=== PATIENT | male | born 1990 | race Caucasian/White ===

== ENCOUNTER → 2018-05-11 | Day surgery (SDC) | payer BC ==
[~2018-05-11] MED LIST: CEFTRIAXONE SOD 1 GM/NS 50 ML 50 ML IV ONE; FENTANYL CITRATE/PF 100MCG/2 ML INJ ONE; FLOMAX0.4 MG PO; IOPAMIDOL 610MG/1ML 300 MG/ML VIAL IV ONE; LIDOCAINE HCL 2% LOCAL INJ 5 ML SDV VIAL INJ ONE; MEPERIDINE HCL INJ 25 MG/ML VIAL ONE; MIDAZOLAM HCL 2 MG/2 ML VIAL ONE; ONDANSETRON HCL INJ 2 MG/ML VIAL ONE; PROPOFOL IV EMULSION 10 MG/ML 20 ML VIAL ONE; SEVOFLURANE INHAL SOLN 250 ML PEN BTL ONE; ULTRAM 50MG50 MG PO
[2018-05-11 14:10] VITALS: BP 129/70
--- NOTE | 2018-05-11 15:09 | Operative Report ---
DATE OF PROCEDURE: May 11, 2018 PREOPERATIVE DIAGNOSES 1. Microscopic hematuria. 2. Left ureteral calculus. 3. Left hydronephrosis. POSTOPERATIVE DIAGNOSES 1. Microscopic hematuria. 2. Left ureteral calculus. 3. Left hydronephrosis. PROCEDURES 1. Cystourethroscopy with right ureteral catheterization and right retrograde pyelogram (entirely separate procedure for microscopic hematuria). 2. Cystourethroscopy with extraction of left ureteral calculus (entirely separate procedure for left ureteral calculus). 3. Supervision of fluoroscopy for stone extraction and ureteroscopy portion. 4. Interpretation of retrograde pyelography. ANESTHESIA: General. ESTIMATED BLOOD LOSS: Minimal. COMPLICATIONS: None. INDICATIONS: Mr. Borrego is a very pleasant, 27-year-old male with a history of severe left renal colic. He was found on a CAT scan in an outside ER to have a 4-mm stone. It is present in the preoperative area, and he is still complaining of left-sided flank pain and hematuria. He and I had a long discussion regarding the alternatives, risks and benefits, including doing nothing, cystoscopy, ureteroscopy, shock-wave lithotripsy, percutaneous surgery and open surgery. He voiced an understanding of the options, the alternatives, and the risks and benefits, and he elected to proceed. PROCEDURE IN DETAIL: After informed consent was obtained, the patient was taken to the operative suite and placed supine on the table and underwent general anesthesia. He was placed in the dorsal lithotomy position. He was sterilely prepped and draped in the standard fashion for cystoscopy. A 22.5-[place] cystoscope was inserted per urethra. A normal urethra was noted. Panendoscopy of the bladder revealed no tumors. Bilateral ureters were catheterized. The left stone was manipulated out of the ureter with a 5-[place] open-ended catheter. The stone was grasped and passed off the table as a specimen. Retrograde pyelogram was performed initially revealing some air bubbles on the left side. No hydronephrosis bilaterally. At this time, the stone was removed and the bladder was drained. The patient was awakened from anesthesia and transported to the recovery room in excellent condition. SUPERVISION OF FLUOROSCOPY AND INTERPRETATION OF RETROGRADE PYELOGRAPHY: I was present throughout the entire procedure and supervised the use of fluoroscopy. There was no radiologist present. Attention was turned toward the right and left ureteral orifices, which were catheterized with a 5-[place], open-ended catheter. Bilateral retrograde pyelograms were performed spilling into the bladder showing the stone in the posterior aspect after manipulation. There were some small air bubbles in the left ureter. Otherwise normal retrograde pyelograms. Job#: [id number]
== END | disposition home or self-care (01) ==
LOC: OR 10:11 → EDBD 12:00
PROVIDERS: ATTEND Urology
DX: N20.1 Calculus of ureter (principal); N13.30 Unspecified hydronephrosis; N28.89 Other specified disorders of kidney and ureter; Z84.1 Family history of disorders of kidney and ureter
CPT/HCPCS: 52320; 74420; 88300; J0696; J2001; J2175; J2250; J2405; J2704; Q9967